=== PATIENT | female | born 1995 | race African-American/Black ===

== ENCOUNTER 2017-02-09 20:48 | Emergency (ER) | payer SELFPAY ==
[2017-02-09] MEDS ORDERED: Ondansetron HCl/PF 4 MG/2 ML Vial ONE (21:14)
[2017-02-09] MEDS ORDERED: Ondansetron ODT 4 MG TAB ONE (21:14)
[2017-02-09] MEDS ORDERED: Ketorolac Tromethamine 30 MG/ML VIAL ONE (21:16)
[2017-02-09] MEDS ORDERED: diphenhydrAMINE HCl 50 MG/ML 1 ML VIAL ONE (21:16)
[2017-02-09] MEDS ORDERED: Sodium Chloride 0.9% 1,000 ML ONE (21:16)
[2017-02-09] MEDS ORDERED: Metoclopramide HCl 10 MG/2 ML VIAL ONE (21:16)
--- NOTE | 2017-02-09 22:32 | RAD ---
PORTABLE AP CHEST X-RAY 02/09/17 HISTORY: Shortness of breath and headache. There is hazy bibasilar densities which is likely related to overlying soft tissue density and the u nderpenetrated technique of the study as well as shallow depth of inspiration accentuating the lung markings. However, bibasilar parenchymal opacities related to pneumonia cannot be entirely excluded. Repeat PA and lateral chest x-ray is recommended with better depth of inspiration. Pulmonary vascul ature and cardiac silhouette are within normal limits. Osseous structures are intact. IMPRESSION: Increased bibasilar densities which is thought to be related to combination of overlying soft tissue density as well as underpenetrated technique and shallow depth of inspiration. However, PA and late ral chest x-ray is recommended for further evaluation. POS: [facility]
[2017-02-09 23:04] LABS: Bilirubin Negative (Negative); Blood, Urine Negative (Negative); Clarity Clear (Clear); Glucose, Urine (Dipstick) Negative (Negative); Leukocyte Trace (Negative); Nitrite Negative (Negative); Protein, Urine (Dipstick) 30 mg/dL (Neg-Trace); Specific Gravity, Urine 1.034 (1.002-1.036); Urobilinogen 0.2 mg/dL (0.2-1.0)
[2017-02-09 23:05] LABS: Bacteria/HPF Rare-Few HPF (None Seen); Pregnancy Test - Urine (BHCG) Negative (NEGATIVE); Pregu Control Background? CLEAR/WHITE (CLR/WHITE); Pregu Control Bar Appear? YES (CONTROL BAR); RBC/HPF None Seen HPF (0-3); Specific Gravity 1.034 (1.002-1.036); Squamous Epithelial 0-3 HPF (0-3)
--- NOTE | 2017-02-09 23:32 | RAD ---
PA AND LATERAL CHEST X-RAY 02/09/17 HISTORY: Shortness of breath. Prior chest x-ray demonstrated hazy opacities at each lung base. COMPARISON: 02/09/17 at 2131 hours. FINDINGS: The cardiac silhouette and pulmonary vasculature are within normal limits. The lungs are clear. Osse ous structures are intact. Hazy opacities at each lung base on the prior study were most likely rela gino to overlying soft tissue density and accentuation of the bronchovascular markings due to techniq ue of the exam. IMPRESSION: No acute cardiopulmonary process. POS: [facility]
== END 2017-02-10 00:05 | disposition home or self-care (01) ==
LOC: NAV ERS 20:48
DX: R51 Headache (principal)
CPT/HCPCS: 71010; 71020; 81003; 81015; 81025; 93005; 96361; 96374; 96375; J1200; J1885; J2405; J2765; J7050; Q0162

== ENCOUNTER 2017-08-14 18:21 | Emergency (ER) | payer SELFPAY ==
[2017-08-14] MEDS ORDERED: Ketorolac Tromethamine 30 MG/ML VIAL ONE (19:06)
[2017-08-14 19:33] LABS: ALT (SGPT) 14 U/L (8-55); AST (SGOT) 14 U/L (5-34); Albumin 4.3 g/dL (3.5-5.0); Alkaline Phosphatase 82 U/L (40-150); Anion Gap 15 mmol/L (10-20); BUN (Urea Nitrogen) 9 mg/dL (7.0-18.7); Bilirubin, Total 0.5 mg/dL (0.2-1.2); Calc. Creatinine Clearance 0 mL/min (70-130); Calcium 9.5 mg/dL (7.8-10.44); Carbon Dioxide 22 mmol/L (22-29); Chloride 104 mmol/L (98-107); Estimated GFR-MDRD Greater than 90; Globulin 3.8 g/dL (2.4-3.5); Glucose 89 mg/dL (70-105); Potassium 3.9 mmol/L (3.5-5.1); Protein, Total 8.1 g/dL (6.0-8.3); Sodium 137 mmol/L (136-145)
[2017-08-14 19:37] LABS: Hemoglobin 12.7 g/dL (12.0-16.0); Mean Corpuscular HGB CONC 31.7 g/dL (32.0-36.0); Mean Corpuscular Hemoglobin 28.4 pg (27.0-31.0); Mean Corpuscular Volume 89.7 fl (81.0-99.0); Platelet Count 482 thou/uL (130-400); RBC Distribution Width 12.2 % (11.5-14.5); Red Blood Cell (RBC) Count 4.47 mill/uL (4.20-5.40); White Blood Cell (WBC) Count 9.3 thou/uL (4.8-10.8)
[2017-08-14 19:55] LABS: Eosinophils 3 % (0-10); Lymphocytes 38 % (21-51); MDiff Complete? YES; Monocytes 2 % (0-10); Neutrophil 57 % (42-75); PLT Morphology Comment Appears Increased; RBC Morphology Normal
== END 2017-08-14 21:50 | disposition short-term general hospital (02) ==
LOC: NAV ERS 18:21
DX: M79.601 Pain in right arm (principal); R51 Headache; J45.909 Unspecified asthma, uncomplicated; F90.9 Attention-deficit hyperactivity disorder, unspecified type
CPT/HCPCS: 80053; 85025; 85379; 96361; 96374; J1885

== ENCOUNTER 2017-09-18 17:53 | Emergency (ER) | payer SELFPAY ==
[2017-09-18] MEDS ORDERED: cefTRIAXone\\ROCEPHIN 1 GM VIAL ONE (19:01)
[2017-09-18] MEDS ORDERED: Lidocaine 1% 20 ML MDV ONE (19:01)
== END 2017-09-18 19:35 | disposition home or self-care (01) ==
LOC: NAV ERS 17:53
DX: J02.0 Streptococcal pharyngitis (principal); J45.909 Unspecified asthma, uncomplicated; G43.909 Migraine, unspecified, not intractable, without status migrainosus
CPT/HCPCS: 96372; J0696; J2001

== ENCOUNTER 2019-10-22 22:33 | Emergency (ER) | payer SELFPAY ==
[2019-10-22] MEDS ORDERED: Ibuprofen 800 MG TAB ONE (23:18)
== END 2019-10-22 23:23 | disposition home or self-care (01) ==
LOC: NAV ERS 22:33
DX: J06.9 Acute upper respiratory infection, unspecified (principal); G43.909 Migraine, unspecified, not intractable, without status migrainosus; J45.909 Unspecified asthma, uncomplicated
CPT/HCPCS: 87081; 87430; 99283

== ENCOUNTER 2020-05-08 14:25 | Emergency (ER) | payer SELFPAY ==
[2020-05-08 15:06] LABS: Bilirubin Negative (Negative); Blood, Urine Negative (Negative); Clarity Clear (Clear); Glucose, Urine (Dipstick) Negative (Negative); Ketone, Urine Trace mg/dL (Negative); Leukocyte Small (Negative); Nitrite Positive (Negative); Pregnancy Test - Urine (BHCG) POSITIVE (Negative); Protein, Urine (Dipstick) 30 mg/dL (Neg-Trace)
[2020-05-08 15:07] LABS: Pregu Control Background? CLEAR/WHITE (CLR/WHITE); Pregu Control Bar Appear? YES (CONTROL BAR)
[2020-05-08 15:09] LABS: Bacteria/HPF Rare-Few HPF (None Seen); RBC/HPF 0-3 HPF (0-3); WBC/HPF 0-3 HPF (0-3)
== END 2020-05-08 15:36 | disposition home or self-care (01) ==
LOC: NAV ERS 14:25
DX: O21.9 Vomiting of pregnancy, unspecified (principal); O23.41 Unspecified infection of urinary tract in pregnancy, first trimester; O13.1 Gestational [pregnancy-induced] hypertension without significant proteinuria, first trimester; O99.341 Other mental disorders complicating pregnancy, first trimester; F90.9 Attention-deficit hyperactivity disorder, unspecified type; O99.511 Diseases of the respiratory system complicating pregnancy, first trimester; J45.909 Unspecified asthma, uncomplicated
CPT/HCPCS: 81003; 81015; 81025; 99284

== ENCOUNTER 2020-05-26 12:40 | Emergency (ER) | payer MEDICAID ==
[2020-05-26] MEDS ORDERED: Tetracaine HCl 0.5% Ophth Soln 2 ML Bottle ONE (12:58)
[2020-05-26] MEDS ORDERED: Fluorescein Opthalmic Strip ONE (12:58)
== END 2020-05-26 13:23 | disposition home or self-care (01) ==
LOC: NAV ERS 12:40
DX: O9A.211 Injury, poisoning and certain other consequences of external causes complicating pregnancy, first trimester (principal); S05.01XA Injury of conjunctiva and corneal abrasion without foreign body, right eye, initial encounter; O99.211 Obesity complicating pregnancy, first trimester; E66.9 Obesity, unspecified; O99.351 Diseases of the nervous system complicating pregnancy, first trimester; G43.909 Migraine, unspecified, not intractable, without status migrainosus; O99.511 Diseases of the respiratory system complicating pregnancy, first trimester; J45.909 Unspecified asthma, uncomplicated; Z3A.08 8 weeks gestation of pregnancy; X58.XXXA Exposure to other specified factors, initial encounter
CPT/HCPCS: 99283

== ENCOUNTER 2020-08-16 22:14 | Emergency (ER) | payer MEDICAID ==
[2020-08-16 22:56] LABS: Bilirubin Negative (Negative); Blood, Urine Negative (Negative); Clarity Hazy (Clear); Glucose, Urine (Dipstick) Negative (Negative); Ketone, Urine 15 mg/dL (Negative); Leukocyte Negative (Negative); Nitrite Negative (Negative); Protein, Urine (Dipstick) 30 mg/dL (Neg-Trace); Specific Gravity, Urine 1.025 (1.005-1.030); Urobilinogen 0.2 mg/dL (Less than 2); pH, Urine 5.5 (5.0-9.0)
[2020-08-16 22:57] LABS: Bacteria/HPF Rare-Few HPF (None Seen); RBC/HPF None Seen HPF (0-3); Squamous Epithelial 0-3 HPF (0-3); WBC/HPF 0-3 HPF (0-3)
== END 2020-08-16 23:23 | disposition home or self-care (01) ==
LOC: NAV ERS 22:14
DX: O99.891 Other specified diseases and conditions complicating pregnancy (principal); R10.32 Left lower quadrant pain; R10.31 Right lower quadrant pain; Z3A.19 19 weeks gestation of pregnancy
CPT/HCPCS: 81003; 81015; 99284

== ENCOUNTER 2025-07-29 07:51 | Emergency (ER) | payer OTHER, SELFPAY ==
[2025-07-29] MEDS ORDERED: Acetaminophen 325 MG TAB ONE (08:34)
== END 2025-07-29 09:34 | disposition home or self-care (01) ==
LOC: NAV ERS 07:51
DX: M25.562 Pain in left knee (principal); X50.1XXA Overexertion from prolonged static or awkward postures, initial encounter
CPT/HCPCS: 99283